=== PATIENT | male | born 1965 | race Caucasian/White ===

== ENCOUNTER 2025-09-16 11:50 | Outpatient (CLI) | payer OTHER | END 2025-09-16 11:51 | disposition home or self-care (01) | LOC: SCSMRI 11:50 | PROVIDERS: ATTEND Orthopaedic Surgery | DX: M75.111 Incomplete rotator cuff tear or rupture of right shoulder, not specified as traumatic (principal); M75.31 Calcific tendinitis of right shoulder; M19.011 Primary osteoarthritis, right shoulder ==

== ENCOUNTER 2025-10-08 07:42 | Day surgery (SDC) | payer OTHER ==
[2025-10-08] MEDS ORDERED: Sodium Bicarbonate 2.5 MEQ/5 ML SDV ONE (07:57)
[2025-10-08 09:18] VITALS: BP 144/83; TEMP 98
== END 2025-10-08 11:30 | disposition home or self-care (01) ==
LOC: RAD 07:42 → EDSTATUS 10-23 10:00
PROVIDERS: ATTEND Neurological Surgery
DX: M51.34 Other intervertebral disc degeneration, thoracic region (principal); M54.16 Radiculopathy, lumbar region
CPT/HCPCS: 72050; 72072; 72100; 72126; 72129; 72132; 77002; Q9967